=== PATIENT | male | born 2000 | race Two or more races ===

== ENCOUNTER 2024-07-26 21:12 | Inpatient (IN) | payer OTHER ==
[~2024-07-26] VITALS: Ht 165.1 cm; Wt 70.9 kg
[2024-07-26 21:57] LABS: BASOPHILS % (AUTO) 0.6 % (0.0-2.0); EOSINOPHILS % (AUTO) 0.8 % (1.0-6.0); HEMATOCRIT 41.4 % (41-53); HEMOGLOBIN 14.3 g/dL (13.5-17.5); LYMPHOCYTES # (AUTO) 1.2 K/uL (1.0-4.8); LYMPHOCYTES % (AUTO) 14.2 % (22.0-44.0); MEAN CORPUSCULAR HEMOGLOBIN 30.8 pg (26.0-34.0); MEAN CORPUSCULAR HGB CONC 34.6 G/dL (31.0-37.0); MEAN CORPUSCULAR VOLUME 89 fL (80-100); MONOCYTES % (AUTO) 11.1 % (2.0-9.0); NEUTROPHILS # (AUTO) 6.4 K/uL (1.8-7.7); NEUTROPHILS % (AUTO) 73.3 % (40.0-70.0); PLATELET COUNT (AUTO) 191 K/uL (150-450); RED BLOOD CELL COUNT(AUTO) 4.65 MIL/uL (4.50-5.90); RED CELL DISTRIBUTION WIDTH 12.6 % (11.5-14.5); WHITE BLOOD COUNT (AUTO) 8.8 K/uL (4.5-11.0)
[2024-07-26 22:20] LABS: APPEARANCE,URINE CLEAR (CLEAR); BILIRUBIN,URINE NEGATIVE (NEGATIVE); COLOR,URINE LIGHT YELLOW (YELLOW); GLUCOSE, URINE (UA) NEGATIVE (NEGATIVE); KETONES,URINE NEGATIVE (NEGATIVE); LEUKOCYTE ESTERASE ,URINE NEGATIVE (NEGATIVE); NITRATE,URINE NEGATIVE (NEGATIVE); OCCULT BLOOD,URINE NEGATIVE (NEGATIVE); PROTEIN,URINE NEGATIVE (NEGATIVE); SPECIFIC GRAVITIY, URINE 1.015 (1.003-1.030); UROBILINOGEN,URINE <=1.0 mg/dL (<=1.0)
[2024-07-26 22:31] LABS: ALANINE AMINOTRANSFERASE 39 U/L (12-78); ASPARTATE AMINOTRANSFERASE 25 U/L (15-37); CHLORIDE 101 mmol/L (98-107); SODIUM SERUM 138 mmol/L (136-145); UREA NITROGEN, BLOOD 12 mg/dL (7-18)
[2024-07-26] MEDS: SODIUM CHLORIDE 0.9% 1,000 ML IV ONE ×2 (22:32→22:33)
[2024-07-26] MEDS: IOHEXOL 9 MG/ML 500 ML BOTTLE PO ONE (22:34)
[2024-07-26] MEDS: ONDANSETRON HCL 4 MG/2 ML VIAL IVP ONE (22:34)
[2024-07-26] MEDS: MORPHINE SULFATE 4 MG/ML SYRINGE IVP ONE (22:34)
[2024-07-26 22:48] LABS: ANION GAP 11 mmol/L (8-16); CALCIUM, TOTAL 9.4 mg/dL (8.8-10.5); CARBON DIOXIDE 26 mmol/L (22-29); CREATININE 0.98 mg/dL (0.60-1.30); GLOMERULAR FILTR. RATE CALC > 60 mL/min (>60); GLUCOSE,RANDOM 105 mg/dL (70-110); POTASSIUM 4.1 mmol/L (3.5-5.1)
[2024-07-26 22:54] LABS: ALBUMIN 4.3 g/dL (3.4-5.0); ALKALINE PHOSPHATASE 65 U/L (46-116); BILIRUBIN,TOTAL 0.5 mg/dL (0.1-1.0); TOTAL PROTEIN, SERUM 7.8 g/dL (6.4-8.2)
[2024-07-26 22:58] LABS: LIPASE 32 U/L (16-77)
[2024-07-26] MEDS ORDERED: SODIUM CHLORIDE 0.9% 100 ML ONE (23:49)
[2024-07-26] MEDS ORDERED: IOHEXOL 350 MG/ML 100 ML VIAL ONE (23:50)
[2024-07-27] MEDS ORDERED: ONDANSETRON HCL 4 MG/2 ML VIAL IVP PRN (01:45)
[2024-07-27] MEDS ORDERED: MAGNESIUM HYDROXIDE SUSPENSION 30 ML UDCUP PO PRN (01:45)
[2024-07-27] MEDS: HYDROmorphone HCL 2 MG/ML SYRINGE IVP ONE (02:25)
[2024-07-27 03:58] VITALS: BP 119/51; PULSE 87; RESP 16; TEMP 98.3; O2SAT 100
[2024-07-27] MEDS: ACETAMINOPHEN 325 MG TABLET PO PRN (06:21)
[2024-07-27 07:46] VITALS: BP 114/36; PULSE 88; RESP 18; TEMP 98.3; O2SAT 100
[2024-07-27] MEDS: DOCUSATE SODIUM 100 MG CAPSULE PO SCH (09:40)
[2024-07-27] MEDS: PANTOPRAZOLE SODIUM 40 MG/VIAL IVP SCH (09:41)
[2024-07-27] MEDS ORDERED: PANT-31 PO (10:54)
[2024-07-27] MEDS ORDERED: ACET-2247 PO (10:55)
[2024-07-27] MEDS ORDERED: MAGN-169 PO (10:56)
== END 2024-07-27 17:47 | DRG 392 ==
LOC: EMS 21:12 → EDH 07-27 01:38 → 6N 07-27 03:15
PROVIDERS: ADMIT Internal Medicine; ATTEND Internal Medicine
DX: R10.84 Generalized abdominal pain (principal); Z90.49 Acquired absence of other specified parts of digestive tract
CPT/HCPCS: 71045; 74177; 80048; 80076; 81003; 83690; 85025; 93005; 99285; C9113; J1171; J2270; J2405; J7030; J7050; 36415-L1; 36415-TC

== ENCOUNTER 2024-11-26 10:41 | Day surgery (SDC) | payer OTHER ==
[~2024-11-26 10:41] MED LIST: ACET-2247 PO; LIDOCAINE/PF 2% 5 ML SYRINGE IVP ONE; MAGN-169 PO; PANT-31 PO; PROPOFOL 1% 20 ML VIAL IVP ONE
[2024-11-26] MEDS ORDERED: SODIUM CHLORIDE 0.9% 1,000 ML IV ONE (11:00)
[2024-11-26] MEDS ORDERED: OXYGEN THERAPY IH SCH (20:00)
== END 2024-11-26 14:40 | disposition home or self-care (01) ==
LOC: SURGERY 10:41
PROVIDERS: ATTEND Specialist
DX: R10.13 Epigastric pain (principal); K29.50 Unspecified chronic gastritis without bleeding; B96.81 Helicobacter pylori [H. pylori] as the cause of diseases classified elsewhere; K21.9 Gastro-esophageal reflux disease without esophagitis
CPT/HCPCS: 43239; 88342; 88305; J2704; J3490